=== PATIENT | male | born 1945 | race Two or more races ===

== ENCOUNTER 2018-01-15 20:20 | Emergency (ER) | payer MEDICARE, OTHER ==
[~2018-01-15] VITALS: Ht 165.1 cm; Wt 77.1 kg
[2018-01-16 01:38] VITALS: BP 143/77
[2018-01-16] MEDS ORDERED: LIDOCAINE 1%HCL (LOCAL ANESTH) 10 ML MDV ONE (01:43)
[2018-01-16] MEDS ORDERED: HYDROcodone-ACET 10/325MG TAB PO ONE (01:45)
[2018-01-16] MEDS ORDERED: methylPREDNISolone SOD SUCC 125 MG/2 ML VL IM ONE (01:45)
[2018-01-16] MEDS ORDERED: cefTRIAXone SOD 1,000 MG VL IM ONE (01:45)
== END 2018-01-16 02:04 | disposition home or self-care (01) ==
LOC: ER 20:20
DX: H66.93 Otitis media, unspecified, bilateral (principal); R05 Cough; R09.81 Nasal congestion
CPT/HCPCS: 71046; 93005; 96372; 99283; J0696; J2001; J2930